=== PATIENT | male | born 1980 | race Caucasian/White ===

== ENCOUNTER 2019-01-17 18:06 | Emergency (ER) | payer SELFPAY ==
[~2019-01-17] VITALS: Wt 80.6 kg
[2019-01-17] MEDS ORDERED: IBUPROFEN 800 MG TAB PO ONE (19:30)
[2019-01-17] MEDS ORDERED: IBUP-1542 PO (20:06)
--- NOTE | 2019-01-17 20:07 | ERD ---
ER Documentation Chief Complaint Chief Complaint l. sided cp x1 wk, worse over last 3 days and on movement HPI Patient is a 38-year-old male with no medical problems who presents with chest pain. He has had 3 days of chest pain that comes and goes. He says it will last hours at a time. He has had no treatment as of yet. He said that it started when he was moving a refrigerator in the refrigerator fell on him and he tried to push it off. Upon review of old medical records the patient one previous visit to the ER 2014. He does not currently have a primary doctor. ROS All systems reviewed and are negative except as per history of present illness. Medications Home Meds Active Scripts Ibuprofen* (Motrin*) 600 Mg Tab, 600 MG PO Q6H PRN for PAIN AND OR ELEVATED TEM P, #30 TAB Prov:REBEKAH BOWEN MD 01/17/19 Allergies Allergies: Coded Allergies: No Known Allergy (Unverified , 09/25/14) PMhx/Soc History of Surgery: Yes (Low Back Surgery) Anesthesia Reaction: No Hx Neurological Disorder: No Hx Respiratory Disorders: No Hx Cardiac Disorders: No Hx Psychiatric Problems: No Hx Miscellaneous Medical Probl: No Hx Alcohol Use: Yes (socially) Hx Substance Use: No Hx Tobacco Use: Yes Smoking Status: Current every day smoker FmHx Family History: No coronary disease Physical Exam Vitals Vital Signs Date Temp Pulse Resp B/P (MAP) Pulse Ox O2 O2 Flow FiO2 Time Delivery Rate 01/17/19 98.6 70 18 109/68 98 Room Air 20:42 (82) 01/17/19 98.6 75 20 129/84 98 Room Air 19:17 (99) 01/17/19 98.6 96 20 142/85 98 18:09 (104) Physical Exam Const: No acute distress Head: Atraumatic Eyes: Normal Conjunctiva ENT: Normal External Ears, Nose and Mouth. Neck: Full range of motion. No meningismus. Resp: Clear to auscultation bilaterally Cardio: Regular rate and rhythm, no murmurs, chest wall pain with palpation Abd: Soft, non tender, non distended. Normal bowel sounds Skin: No petechiae or rashes Back: No midline or flank tenderness Ext: No cyanosis, or edema Neur: Awake and alert Psych: Normal Mood and Affect Results 24 hrs Current Medications Medications Dose Sig/Yodit Start Time Status Last (Trade) Ordered Route PRN Stop Time Admin Dose Reason Admin Ibuprofen 800 mg ONCE ONCE 01/17/19 DC 01/17/19 (Motrin) PO 19:30 19:58 01/17/19 19:31 Procedures/MDM EKG read by me: Rate/Rhythm: Regular rate and rhythm at a rate of 94 Intervals: Normal Impression: No evidence of ischemia or arrhythmia Chest x-ray negative per radiology. Smoking Cessation Therapy: Pt. was lectured for greater than 3 minutes on the health risks of continued smoking and the benefits of cessation. Patient is a 38-year-old male presents with chest pain. EKG and chest x-ray were negative. I believe the patient likely has muscular skeletal chest pain and will be discharged. He will be given a prescription for ibuprofen. He should follow-up with a local clinics within 1 to 2 days however for reevaluation. He can return for any worsening symptoms. I doubt acute coronary syndrome, pneumonia, pneumothorax, pulmonary embolism, or aortic dissection. Departure Diagnosis: Primary Impression: Chest pain Chest pain type: unspecified Qualified Codes: R07.9 - Chest pain, unspecified Condition: Fair Patient Instructions: Chest Pain, Uncertain Cause [facility]errals[facility] Usted se luo hecho un examen mdico de control que le indica que no est en alicia condicin que requiera tratamiento urgente en el Departamento de Emergencia. Un estudio ms profundo y el tratamiento de phelps condicin pueden esperar sin ningn riesgo hasta que usted sea atendida/o en el consultorio de phelps mdico o alicia clnica. Es responsabilidad suya arreglar alicia mery para el seguimiento del harshil. MANEJO DE CONDICIONES NO URGENTES EN EL FUTURO 1) Si usted tiene un mdico de atencin primaria: Usted debera llamar a phelps mdico de atencin primaria antes de venir al departamento de emergencia. Despus de las horas de consultorio, phelps doctor o phelps asociado/a est disponible por telfono. El mdico o enfermero de yosvany en el servicio telefnico puede asesorarle por sascha medio para atender el problema, o harshil contrario se puede programar alicia mery. 2) Si usted no tiene un mdico de atencin primaria: Llame al mdico o clnica de referencia que aparece abajo mabel las horas de consultorio para hacer alicia mery para que le vean. CLINICAS: [facility] [phone] [facility] [id number] [facility] [phone] [place] [id number] [phone] [facility] [phone] [id number] [facility]. [phone] [address] Additional Instructions: Llame al doctor MAANA y radha alicia MERY PARA DENTRO DE 1-2 WEEMS.Dgale a la secretaria que nosotros le instruimos hacer esta mery.Avise o llame si phelps condicin se empeora antes de la mery. Regresa aqui si peor o no mejor. REBEKAH BOWEN MD Jan 17, 2019 20:07
[2019-01-17 20:42] VITALS: BP 109/68; PULSE 70; RESP 18
== END 2019-01-17 20:45 | disposition home or self-care (01) ==
LOC: E/R 18:06
DX: R07.89 Other chest pain (principal); F17.210 Nicotine dependence, cigarettes, uncomplicated
CPT/HCPCS: 71045; 93005